=== PATIENT | male | born 2000 | race Caucasian/White ===

== ENCOUNTER 2021-11-11 11:44 | Emergency (ER) | payer OTHER, BC, SELFPAY ==
[2021-11-11 11:54] VITALS: BP 107/67; PULSE 104; RESP 16; TEMP 36.7; O2SAT 100
--- NOTE | 2021-11-11 12:10 | ED.LOWEXIN ---
HPI - Extremity Injury (Lower) General Chief Complaint: Extremity Injury, Lower Stated Complaint: stepped on nail right foot Time Seen by Provider: 11/11/21 12:10 Source: patient and family Mode of arrival: ambulatory Limitations: no limitations History of Present Illness HPI Narrative: Ino is a 21-year-old male patient who ambulated into the [facility]. Patient states 2 days ago he stepped on a large nail that went through his rubber boot and into the bottom of his foot. Patient states he has redness surrounding the insertion site. Patient states he has had mild chills. Patient denies any numbness or tingling. Patient has full range of motion without Related Data Allergies Allergy/AdvReac Type Severity Reaction Status Date / Time No Known Allergies Allergy Verified 11/11/21 12:02 Review of Systems Review of Systems: CONSTITUTIONAL: Denies body aches, fever, chills, or sweats. EYES: Denies visual changes, redness, or discharge. ENT: Denies rhinorrhea, congestion, sore throat, or otalgia. CARDIOVASCULAR: Denies chest pain, palpitations, or edema. RESPIRATORY: Denies cough or dyspnea. GASTROINTESTINAL: Denies abdominal pain, nausea, vomiting, or diarrhea. GENITOURINARY: Denies dysuria or hematuria. SKIN: Denies rash, itching,+ puncture site to right foot MUSCULOSKELETAL: Denies back pain, joint pain, or myalgia. NEUROLOGIC: Denies headache, numbness, tingling, or weakness. PSYCH: Denies depression or anxiety. All systems reviewed & are unremarkable except as noted in HPI and below Exam Narrative: GENERAL: Well-appearing, well-nourished, and in no acute distress. HEAD: Normocephalic, atraumatic. EYES: EOMI. No redness or drainage. Conjunctivae normal. ENT: Mucous membranes pink and moist. Nares clear. No rhinorrhea. TMs normal bilaterally. Throat normal. Uvula midline. NECK: Normal AROM. Supple. No lymphadenopathy. CHEST: No respiratory distress. Clear to auscultation. HEART: Regular rate and rhythm. No murmur appreciated. Normal peripheral pulses. ABDOMEN: Soft, nontender, nondistended, normal active bowel sounds. MUSCULOSKELETAL: No bony tenderness. EXTREMITIES: Normal range of motion. No edema. SKIN: Warm, dry, no rash. Capillary refill normal. Normal skin turgor.; Moderate erythema surrounding insertion site of nail on the right distal plantar aspect; neurovascular exam is intact. Patient has full range of motion to the right foot. no edema to site NEURO: No focal deficits. Alert and oriented x3. Gait steady. PSYCH: Normal affect. No signs of depression or anxiety. Course Vital Signs Vital signs: Vital Signs Temperature 36.7 C 11/11/21 11:54 Pulse Rate 104 H 11/11/21 11:54 Respiratory Rate 16 11/11/21 11:54 Blood Pressure 107/67 11/11/21 11:54 Pulse Oximetry 100 11/11/21 11:54 Temperature 36.7 C 11/11/21 11:54 Pulse Rate 104 H 11/11/21 11:54 Respiratory Rate 16 11/11/21 11:54 Blood Pressure 107/67 11/11/21 11:54 Pulse Oximetry 100 11/11/21 11:54 MDM - Extremity Injury (Lower) MDM Narrative Medical decision making narrative: Patient has a puncture wound to the right distal plantar area. Patient has mild erythema without edema. Patient states he has no fever. Patient states he feels like he may have had chills yesterday. Patient boots were rubber soled shoe he will be put on Cipro twice a day. Patient to follow-up with his primary care doctor in 3 days. Patient to go the ER for red streaking, fever, chills, or increased swelling and redness. Differential Diagnosis Differential diagnosis: Likely ankle sprain and strain, puncture wound of foot and fracture of toe Critical Care Time Critical Care Time Critical Care Time: No Discharge Plan Discharge Clinical Impression: Puncture wound of foot, right Qualifiers: Encounter type: initial encounter Qualified Code(s): S91.331A - Puncture wound without foreign body, right foot, initial encounter Patient Dis
[2021-11-11] MEDS: TETANUS,DIPHTHERIA,AC PERTUSSIS ADULT (0.5 ML) BOOSTRIX IM (12:18)
== END 2021-11-11 12:40 | disposition home or self-care (01) ==
PROVIDERS: Emergency Provider Nurse Practitioner Family
DX: S91.331A Puncture wound without foreign body, right foot, initial encounter (principal); W45.0XXA Nail entering through skin, initial encounter; Z23 Encounter for immunization
CPT/HCPCS: 90471; 90715; 99213; G0463